=== PATIENT | female | born 1965 | race Caucasian/White ===

== ENCOUNTER → 2020-09-28 13:45 | Outpatient (CLI) | payer OTHER, SELFPAY ==
--- NOTE | ~2020-09-28 | MM_ITS ---
EXAMINATION: MM screening nae BI w yves HISTORY: Screening mammogram TECHNIQUE: Craniocaudal and mediolateral oblique 3-D tomosynthesis images were obtained and synthetic 2-D images were generated. CAD analysis was submitted and interpreted. COMPARISON: No prior mammogram is available for comparison at this institution. BREAST PARENCHYMAL COMPOSITION: The breasts are heterogeneously dense, which may obscure small masses . FINDINGS: There is no evidence of suspicious mass, calcification, or architectural distortion to sugg est malignancy in either breast. There has been no suspicious interval change. IMPRESSION: 1. No mammographic evidence of malignancy. 2. Recommend routine screening mammography in one year. BI-RADS Category 1: Negative Reviewed, dictated and finalized at location A.
== END ==
PROVIDERS: PCP Family Medicine; Visit Provider Nurse Practitioner
DX: Z12.31 Encounter for screening mammogram for malignant neoplasm of breast (principal)
CPT/HCPCS: 77063; 77067

== ENCOUNTER → 2020-11-29 18:08 | Outpatient (CLI) | payer OTHER, SELFPAY ==
--- NOTE | ~2020-11-29 | DEXA_ITS ---
Bone Density Report Name: Kiara Ryan Age: 55 Sex: Female Ethnicity: White Date of : 1965 Indication: osteopenia; monitoring treatment; postmenopausal Referring Provider: Dana, Asmita Study: Bone densitometry was performed. Exam Date: November 29, 2020 Accession number: [id number] Bone Density: Region BMD T-score Z-score Classification AP Spine (L1-L4) 0.909 -1.3 -0.3 Osteopenia Femoral Neck (Left) 0.597 -2.3 -1.3 Osteopenia Total Hip (Left) 0.743 -1.6 -1.0 Osteopenia Femoral Neck (Right) 0.551 -2.7 -1.7 Osteoporosis Total Hip (Right) 0.730 -1.7 -1.1 Osteopenia Total Hip Mean 0.737 -1.7 -1.1 Osteopenia World Health Organization criteria for BMD impression classify patients as: Normal (T-score at or above -1.0), Osteopenia (T-score between -1.0 and -2.5), or Osteoporosis (T-score at or below -2.5). 10-year Fracture Risk: FRAX not reported because: Some T-score for Spine Total or Hip Total or Femoral Neck at or below -2.5 Treated for osteoporosis Previous Exams: Region Exam Age BMD T-score BMD Change BMD Change Date g/cm2 vs Baseline vs Previous AP Spine(L1-L4) 11/29/2020 55 0.909 -1.3 0.110* 0.110* 10/12/2018 53 0.799 -2.3 Total Hip(Left) 11/29/2020 55 0.743 -1.6 -0.036* -0.036* 10/12/2018 53 0.778 -1.3 Total Hip(Right) 11/29/2020 55 0.730 -1.7 -0.030* -0.030* 10/12/2018 53 0.760 -1.5 *Denotes significance at 95% confidence level, LSC for AP Spine = 0.022 g/cm2, LSC for Total Hip = 0.027 g/cm2 Clinical Information Provided by Patient: Is being treated for osteoporosis Has used the following medications: Boniva (i.e. ibandronate) Patient maximum height was 63.5 Menopause Age: 51 Drinks caffeinated beverages Onset of menses at age 16 Number of children 1 Impression: The patient has osteoporosis, based on the Right Femoral Neck T-score. The BMD for the Total Hip(Left) decreased, changing by -0.036 since the last DXA exam. The BMD for the Total Hip(Right) decreased, changing by -0.030 since the last DXA exam. Discussion: SIGNIFICANT BONE LOSS OBSERVED. Adherence to therapy (including calcium and vitamin D intake) should be assessed. If compliance is not a factor, review management and exclusion of secondary causes of bone loss. It is important to ask patients whether they are taking their medications and to encourage continued and appropriate compliance with their oste
== END ==
PROVIDERS: Visit Provider Nurse Practitioner
DX: M81.0 Age-related osteoporosis without current pathological fracture (principal)
CPT/HCPCS: 77080

== ENCOUNTER → 2021-11-06 13:54 | Outpatient (CLI) | payer OTHER, SELFPAY ==
--- NOTE | ~2021-11-06 | MM_ITS ---
EXAMINATION: MM screening nae BI w yves HISTORY: Screening TECHNIQUE: Craniocaudal and mediolateral oblique 3-D tomosynthesis images were obtained and synthetic 2-D images were generated. CAD analysis was submitted and interpreted. COMPARISON: No prior mammogram is available for comparison at this institution. BREAST PARENCHYMAL COMPOSITION: The breasts are extremely dense, which lowers the sensitivity of mamm ography FINDINGS: There is no evidence of suspicious mass, calcification, or architectural distortion to sugg est malignancy in either breast. There has been no suspicious interval change. IMPRESSION: 1. No mammographic evidence of malignancy. 2. Recommend routine screening mammography in one year. BI-RADS Category 1: Negative Reviewed, dictated and finalized at location A.
== END ==
PROVIDERS: PCP Family Medicine; Visit Provider Nurse Practitioner
DX: Z12.31 Encounter for screening mammogram for malignant neoplasm of breast (principal)
CPT/HCPCS: 77063; 77067

== ENCOUNTER → 2023-05-16 10:58 | Outpatient (CLI) | payer OTHER, SELFPAY ==
--- NOTE | ~2023-05-16 | DEXA_ITS ---
Bone Density Report Name: MARQUEZ TOSCANO Age: 57 Sex: Female Ethnicity: White Date of : 1965 Indication: osteopenia; monitoring treatment; height loss; postmenopausal Referring Provider: Dana*Asmita Wright Study: Bone densitometry was performed. Exam Date: May 16, 2023 Accession number: [id number] Bone Density: Region BMD T-score Z-score Classification AP Spine (L1-L4) 0.881 -1.5 -0.4 Osteopenia Femoral Neck (Left) 0.585 -2.4 -1.3 Osteopenia Total Hip (Left) 0.790 -1.2 -0.5 Osteopenia Femoral Neck (Right) 0.532 -2.9 -1.8 Osteoporosis Total Hip (Right) 0.761 -1.5 -0.8 Osteopenia Total Hip Mean 0.776 -1.4 -0.7 Osteopenia World Health Organization criteria for BMD impression classify patients as: Normal (T-score at or above -1.0), Osteopenia (T-score between -1.0 and -2.5), or Osteoporosis (T-score at or below -2.5). 10-year Fracture Risk: FRAX not reported because: Some T-score for Spine Total or Hip Total or Femoral Neck at or below -2.5 Treated for osteoporosis Previous Exams: Region Exam Age BMD T-score BMD Change BMD Change Date g/cm2 vs Baseline vs Previous AP Spine(L1-L4) 05/16/2023 57 0.881 -1.5 0.081* -0.028* 11/29/2020 55 0.909 -1.3 0.110* 0.110* 10/12/2018 53 0.799 -2.3 Total Hip(Left) 05/16/2023 57 0.790 -1.2 0.011 0.047* 11/29/2020 55 0.743 -1.6 -0.036* -0.036* 10/12/2018 53 0.778 -1.3 Total Hip(Right) 05/16/2023 57 0.761 -1.5 0.002 0.031* 11/29/2020 55 0.730 -1.7 -0.030* -0.030* 10/12/2018 53 0.760 -1.5 *Denotes significance at 95% confidence level, LSC for AP Spine = 0.022 g/cm2, LSC for Total Hip = 0.027 g/cm2 Clinical Information Provided by Patient: Is being treated for osteoporosis Has used the following medications: Boniva (i.e. ibandronate), Vitamin D Patient maximum height was 63.5 Menopause Age: 51 Drinks caffeinated beverages Onset of menses at age 16 Number of children 1 Impression: The patient has osteoporosis, based on the Right Femoral Neck T-score. The BMD for the AP Spine(L1-L4) decreased, changing by -0.028 since the last DXA exam. Discussion: SIGNIFICANT BONE LOSS OBSERVED. Adherence to therapy (including calcium and vitamin D intake) should be assessed. If compliance is not a factor, review management and exclusion of secondary causes of bone loss. It is imp
--- NOTE | ~2023-05-16 | MM_ITS ---
EXAMINATION: MM screening nae BI w yves HISTORY: Screening mammogram TECHNIQUE: Craniocaudal and mediolateral oblique 3-D tomosynthesis images were obtained and synthetic 2-D images were generated. Bilateral rotated lateral CC views. CAD analysis was submitted and interp reted. COMPARISON: 11/06/2021, 09/24/2020, 10/12/2018 bilateral screening mammogram examinations BREAST PARENCHYMAL COMPOSITION: The breasts are heterogeneously dense, which may obscure small masses . FINDINGS: There is no evidence of suspicious mass, calcification, or architectural distortion to sugg est malignancy in either breast. There has been no suspicious interval change. IMPRESSION: 1. No mammographic evidence of malignancy. 2. Recommend routine screening mammography in one year. BI-RADS Category 1: Negative Reviewed, dictated and finalized at location A. 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
== END ==
PROVIDERS: PCP Family Medicine; Visit Provider Nurse Practitioner
DX: Z12.31 Encounter for screening mammogram for malignant neoplasm of breast (principal); M81.0 Age-related osteoporosis without current pathological fracture; M85.88 Other specified disorders of bone density and structure, other site
CPT/HCPCS: 77063; 77067; 77080

== ENCOUNTER 2024-09-09 11:26 | Outpatient (CLI) | payer BC, SELFPAY ==
--- NOTE | ~2024-09-09 | MM_ITS ---
EXAMINATION: MM screening nae BI w yves HISTORY: Screening TECHNIQUE: Craniocaudal and mediolateral oblique 3-D tomosynthesis images were obtained and synthetic 2-D images were generated. CAD analysis was submitted and interpreted. COMPARISON: 05/16/2023 through 06/05/2016 BREAST PARENCHYMAL COMPOSITION: The breasts are extremely dense, which lowers the sensitivity of mamm ography FINDINGS: There is no evidence of suspicious mass, calcification, or architectural distortion to sugg est malignancy in either breast. There has been no suspicious interval change. IMPRESSION: 1. No mammographic evidence of malignancy. 2. Recommend routine screening mammography in one year. BI-RADS Category 1: Negative Reviewed, dictated and finalized at location B.
== END 2024-09-09 11:27 | disposition home or self-care (01) ==
LOC: MICIMG 11:27
PROVIDERS: PCP Family Medicine; Visit Provider Nurse Practitioner
DX: Z12.31 Encounter for screening mammogram for malignant neoplasm of breast (principal)
CPT/HCPCS: 77063; 77067

== ENCOUNTER 2024-12-14 09:48 | Outpatient (CLI) | payer BC, SELFPAY ==
--- NOTE | ~2024-12-14 | DEXA_ITS ---
Bone Density Report Name: MARQUEZ TOSCANO Age: 59 Sex: Female Ethnicity: White Date of : 1965 Indication: postmenopausal; screening for osteoporosis; parental hip fracture; height loss; Referring Provider: JADA FAIRBANKS Study: Bone densitometry was performed. Exam Date: December 14, 2024 Accession number: [id number] Bone Density: Region BMD T-score Z-score Classification AP Spine(L1-L4) 0.936 -1.0 0.2 Normal Femoral Neck (Left) 0.589 -2.3 -1.2 Osteopenia Total Hip (Left) 0.721 -1.8 -1.0 Osteopenia Femoral Neck (Right) 0.564 -2.6 -1.4 Osteoporosis Total Hip (Right) 0.763 -1.5 -0.7 Osteopenia Total Hip Mean 0.742 -1.7 -0.9 Osteopenia World Health Organization criteria for BMD impression classify patients as: Normal (T-score at or above -1.0), Osteopenia (T-score between -1.0 and -2.5), or Osteoporosis (T-score at or below -2.5). 10-year Fracture Risk: FRAX not reported because: Some T-score for Spine Total or Hip Total or Femoral Neck at or below -2.5 Treated for osteoporosis Clinical Information Provided by Patient: Parent has had a hip fracture Is being treated for osteoporosis Has used the following medications: Vitamin D, thelma Patient maximum height was 63.5 Menopause Age: 42 Drinks caffeinated beverages Onset of menses at age 16 Number of children 1 Missed period for more than 6 months in a row Impression: The patient has osteoporosis, based on the Right Femoral Neck T-score. The patient has risk factors, including: parental hip fracture. Discussion: It is important to ask patients whether they are taking their medications and to encourage continued and appropriate compliance with their osteoporosis therapies to reduce fracture risk. It is also important to review their risk factors and encourage appropriate calcium and vitamin D intakes, exercise, fall prevention and other lifestyle measures. Follow-Up: Consider a repeat BMD and Vertebral Fracture Assessment (VFA) exam in 2 years or sooner if medically necessary, to reassess this patient's status. Reported by: BOBBY on 12/14/2024 10:28:00 AM. Reviewed, dictated and finalized at location A.
--- OUTSIDE RECORDS SUMMARY | 2024-12-14 11:03 | XMS_ITS | Clinical Summary ---
Author Organization 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 Gender Identity Not on file Sexual Orientation Not on file Plan of Treatment Health Maintenance Due Date Last Done Comments Hepatitis C Virus (HCV) Screening 1965 TdaP Immunization 1965 Hepatitis B Immunization (1 of 3 - 19+ 3-dose series) 07/30/1986 Pap Smear 07/30/1988 Cervical Cancer Screening (CCS) 07/30/1997 HPV/Cotest 07/30/1997 Cologuard 07/30/2012 Colonoscopy 07/30/2012 Colorectal Cancer Screening 07/30/2012 Immunochemical Fecal Occult Blood 07/30/2012 Pneumococcal Immunization (5 0+ years) (1 of 1 - PCV) 07/30/2017 Zoster Immunization (1 of 2) 07/30/2017 SARS-COV-2 Immunization ( - season) 2023 02/27/2021, 06/17/2020, 05/20/2020 Influenza Immunization (#1) 12/06/202401/05, 02/13/2018 Respiratory Syncytial Virus (RSV) Immunization (Adult) (1 - 1-dose 75+ series) 07/30/2042 Human Papillomavirus (HPV) Immunization Aged Out No longer eligible b ased on patient's age to complete this topic Meningococcal Immunization (ACWY) Aged Out No longer eligible b ased on patient's age to complete this topic Rotavirus Immunization Aged Out No lo nger eligible based on patient's age to complete this topic
== END 2024-12-14 09:49 | disposition home or self-care (01) ==
LOC: ANHFOHIMG 09:49
PROVIDERS: PCP Family Medicine; Visit Provider Internal Medicine Endocrinology, Diabetes & Metabolism
DX: M81.0 Age-related osteoporosis without current pathological fracture (principal); M85.852 Other specified disorders of bone density and structure, left thigh; M85.851 Other specified disorders of bone density and structure, right thigh
CPT/HCPCS: 77080